=== PATIENT | female | born 1950 | race Two or more races ===

== ENCOUNTER 2023-06-19 18:57 | Inpatient (IN) | payer OTHER ==
[~2023-06-19] VITALS: Ht 165.1 cm; Wt 68.0 kg
[2023-06-19] MEDS ORDERED: JARDIANCE10 MG PO (20:08)
[2023-06-19] MEDS ORDERED: CALCIUM 600+D1 EAC1 PO (20:09)
[2023-06-19] MEDS ORDERED: EFFER-K 20 MEQ20 MEQ PO (20:09)
[2023-06-19] MEDS ORDERED: LEVO-T75 MCG (20:09)
[2023-06-19] MEDS ORDERED: SODIUM BICARBO650 MG PO (20:10)
[2023-06-19] MEDS ORDERED: 0.9 % SODIUM CHLORIDE 1,000 ML IV SCH (20:30)
[2023-06-19 21:06] LABS: HEMATOCRIT 35.1 % (36.0-45.00); HEMOGLOBIN 11.3 g/dL (12.0-15.00); MEAN CELL VOLUME 89.5 fL (80.00-100.00); MEAN CORPUSCULAR HEMOGLOBIN 28.8 pg (27.00-32.0); MEAN CORPUSCULAR HGB CONC 32.1 g/dl (32.0-36.0); PLATELET COUNT 202 K/uL (150-450); RED BLOOD COUNT 3.92 M/uL (4.00-6.00); RED CELL DISTRIBUTION WIDTH 15.7 % (11.5-14.5)
[2023-06-19 21:34] LABS: ALBUMIN 2.7 gm/dL (3.4-5.0); BILIRUBIN TOTAL 0.3 mg/dL (0.3-1.2); GFR 7.69; GLOBULINA 3.4 G/DL (2.4-3.5); POTASSIUM 5.87 mEq/L (3.5-5.1); TOTAL PROTEIN 6.1 gm/dL (6.4-8.2)
[2023-06-19 21:52] LABS: CREATININE SERUM 5.46 mg/dL (0.55-1.02)
[2023-06-19] MEDS ORDERED: SODIUM POLYSTYRENE SULFONATE 15 G/4 TSP TSP PO SCH (23:43)
[2023-06-19] MEDS ORDERED: CITRIC ACID/SODIUM CITRATE 30 ML BLIST.PACK PO SCH (23:44)
[2023-06-19] MEDS ORDERED: ACETAMINOPHEN 500 MG GEL..CAP PO PRN (23:45)
[2023-06-19] MEDS ORDERED: ONDANSETRON HCL 4 MG in 0.9 % SODIUM CHLORIDE 50 ML IV PRN (23:45)
[2023-06-19] MEDS ORDERED: DEXTROSE 50 % IN WATER 0.5 G/ML DISP.SYRIN IV PRN (23:45)
[2023-06-19] MEDS ORDERED: FUROsemide 40 MG/4 ML VIAL IV ONE (23:45)
[2023-06-19] MEDS ORDERED: SODIUM BICARBONATE 50 MEQ in SODIUM CHLORIDE 0.45 % 1,000 ML IV ONE (23:45)
[2023-06-19 23:46] LABS: ABG PH 7.345 (7.35-7.45); ABG PO2 169.6 mmHg (80-100); BASE EXCESS -11.6 mmol/l; BICARBONATE 11.8 mmol/l (23-25); SaO2 99.3 %
[2023-06-19 23:47] LABS: Tco2 12.4 mmol/l; allen test SATISFACTORY; o2 21 %; puncture site RADIAL RIGHT
[2023-06-20] MEDS ORDERED: IPRATROPIUM BROMIDE 0.5 MG/2.5 ML AMPUL.NEB IH SCH (01:00)
[2023-06-20 03:42] LABS: INR < 0.93; PARTIAL THROMBOPLASTIN TIME 25.6 SECONDS (22.0-34.0); PROTHROMBIN TIME 9.5 SECONDS (9.0-11.5)
[2023-06-20 03:56] LABS: PHOSPHOROUS 4.3 mg/dL (2.5-4.9)
[2023-06-20] MEDS ORDERED: FUROsemide 20 MG/2 ML VIAL IV SCH (09:00)
[2023-06-20] MEDS ORDERED: FAMOTIDINE/PF 20 MG in 0.9 % SODIUM CHLORIDE 8 ML IV PUSH SCH (09:00)
[2023-06-20] MEDS ORDERED: TAMSULOSIN HCL 0.4 MG CAP PO SCH (12:06)
[2023-06-20 18:00] LABS: ALBUMIN 2.2 gm/dL (3.4-5.0); BILIRUBIN TOTAL 0.28 mg/dL (0.3-1.2); CALCIUM 7.3 mg/dL (8.5-10.1); GFR 6.21; GLOBULINA 3.2 G/DL (2.4-3.5); POTASSIUM 4.84 mEq/L (3.5-5.1); TOTAL PROTEIN 5.4 gm/dL (6.4-8.2)
[2023-06-20 18:22] LABS: CREATININE SERUM 6.57 mg/dL (0.55-1.02)
[2023-06-21] MEDS ORDERED: LEVOTHYROXINE SODIUM 75 MCG TABLET PO SCH (06:00)
[2023-06-21 07:07] LABS: ALBUMIN 2.1 gm/dL (3.4-5.0); BILIRUBIN TOTAL 0.32 mg/dL (0.3-1.2); CALCIUM 7.2 mg/dL (8.5-10.1); GFR 5.32; GLOBULINA 2.7 G/DL (2.4-3.5); POTASSIUM 4.61 mEq/L (3.5-5.1); TOTAL PROTEIN 4.8 gm/dL (6.4-8.2)
[2023-06-21 08:07] LABS: CREATININE SERUM 7.51 mg/dL (0.55-1.02)
[2023-06-21] MEDS ORDERED: MIDAZOLAM HCL 2 MG/2 ML VIAL IV ONE (20:00)
[2023-06-21] MEDS ORDERED: LIDOCAINE HCL 100 MG/10ML VIAL ONE (20:24)
[2023-06-22] MEDS ORDERED: FAMOTIDINE/PF 20 MG/2 ML VIAL ONE (07:52)
[2023-06-22 10:58] LABS: ALBUMIN 2.2 gm/dL (3.4-5.0); BILIRUBIN TOTAL 0.41 mg/dL (0.3-1.2); CALCIUM 7.6 mg/dL (8.5-10.1); GFR 7.07; GLOBULINA 2.5 G/DL (2.4-3.5); POTASSIUM 3.9 mEq/L (3.5-5.1); TOTAL PROTEIN 4.7 gm/dL (6.4-8.2)
[2023-06-22 11:01] LABS: CREATININE SERUM 5.87 mg/dL (0.55-1.02)
[2023-06-22 12:30] LABS: INR < 0.93; PROTHROMBIN TIME 9.8 SECONDS (9.0-11.5)
[2023-06-22 12:53] LABS: CHOL HDL RATIO 2.6 (0-5.0)
[2023-06-22 22:12] LABS: URINE APPEARANCE Turbid; URINE BILIRRUBIN Negative (NEGATIVE); URINE BLOOD Large; URINE COLOR Orange; URINE GLUCOSE Negative (NEGATIVE); URINE LEUKOCYTE Large; URINE NITRATE Negative; URINE PROTEIN >=1000 (NEGATIVE); URINE UROBILINOGEN 0.2 E.U./dl
[2023-06-22 22:36] LABS: URINE RBC 19-25 /HPF
[2023-06-22 22:37] LABS: URINE WBC LOADED /hpf
[2023-06-22 22:39] LABS: URINE BACTERIA MANY; URINE CRYSTALS NEGATIVE /HPF; URINE EPITHELIAL CELLS NONE SEEN /HPF; URINE MUCUS HEAVY; URINE YEAST FEW /hpf
[2023-06-23 07:30] LABS: BILIRUBIN TOTAL 0.42 mg/dL (0.3-1.2); CALCIUM 7.8 mg/dL (8.5-10.1); GFR 5.37; GLOBULINA 2.5 G/DL (2.4-3.5); POTASSIUM 4.32 mEq/L (3.5-5.1); TOTAL PROTEIN 4.5 gm/dL (6.4-8.2)
[2023-06-23 08:14] LABS: CREATININE SERUM 7.45 mg/dL (0.55-1.02)
[2023-06-23] MEDS ORDERED: FAMOTIDINE/PF 20 MG/2 ML VIAL ONE (08:16)
[2023-06-23] MEDS ORDERED: CHLORHEXIDINE GLUCONATE 120 ML BOTTLE TOP ONE ×2 (09:45→10:45)
[2023-06-23] MEDS ORDERED: IOVERSOL 320 MG/ML - 50 ML VIAL IV ONE (09:45)
[2023-06-23 21:40] LABS: HEMATOCRIT 35.4 % (36.0-45.00); HEMOGLOBIN 11.9 g/dL (12.0-15.00); MEAN CORPUSCULAR HEMOGLOBIN 29.5 pg (27.00-32.0); MEAN CORPUSCULAR HGB CONC 33.6 g/dl (32.0-36.0); PLATELET COUNT 218 K/uL (150-450); RED BLOOD COUNT 4.02 M/uL (4.00-6.00); RED CELL DISTRIBUTION WIDTH 14.6 % (11.5-14.5)
[2023-06-24 07:10] LABS: ALBUMIN 2.1 gm/dL (3.4-5.0); BILIRUBIN TOTAL 0.39 mg/dL (0.3-1.2); CALCIUM 7.9 mg/dL (8.5-10.1); GFR 7.46; GLOBULINA 2.8 G/DL (2.4-3.5); POTASSIUM 4.45 mEq/L (3.5-5.1); TOTAL PROTEIN 4.9 gm/dL (6.4-8.2)
[2023-06-24 08:29] LABS: CREATININE SERUM 5.6 mg/dL (0.55-1.02)
[2023-06-24] MEDS ORDERED: 0.9 % SODIUM CHLORIDE 1,000 ML IV SCH (12:45)
[2023-06-25] MEDS ORDERED: SODIUM CHLORIDE 0.45 % 1,000 ML IV SCH (06:15)
[2023-06-25 08:23] LABS: ALBUMIN 2.2 gm/dL (3.4-5.0); BILIRUBIN TOTAL 0.46 mg/dL (0.3-1.2); CALCIUM 7.6 mg/dL (8.5-10.1); CREATININE SERUM 3.73 mg/dL (0.55-1.02); GFR 11.93; GLOBULINA 2.8 G/DL (2.4-3.5); POTASSIUM 3.64 mEq/L (3.5-5.1)
[2023-06-26 08:28] LABS: HEMATOCRIT 33.3 % (36.0-45.00); HEMOGLOBIN 11.1 g/dL (12.0-15.00); MEAN CELL VOLUME 87.1 fL (80.00-100.00); MEAN CORPUSCULAR HGB CONC 33.4 g/dl (32.0-36.0); PLATELET COUNT 190 K/uL (150-450); RED BLOOD COUNT 3.83 M/uL (4.00-6.00); RED CELL DISTRIBUTION WIDTH 14.8 % (11.5-14.5)
[2023-06-26 08:46] LABS: ALBUMIN 2.2 gm/dL (3.4-5.0); CALCIUM 7.7 mg/dL (8.5-10.1); CREATININE SERUM 2.47 mg/dL (0.55-1.02); GFR 19.2; MAGNESIUM 1.5 mg/dL (1.8-2.4); POTASSIUM 3.55 mEq/L (3.5-5.1)
[2023-06-26 11:37] LABS: ALBUMIN 2.2 gm/dL (3.4-5.0); BILIRUBIN TOTAL 0.58 mg/dL (0.3-1.2); CALCIUM 7.1 mg/dL (8.5-10.1); CREATININE SERUM 2.29 mg/dL (0.55-1.02); GFR 20.95; GLOBULINA 2.8 G/DL (2.4-3.5); POTASSIUM 3.34 mEq/L (3.5-5.1)
[2023-06-26] MEDS ORDERED: POTASSIUM BICARBONATE/CIT AC 25 MEQ TABLET.EFF PO SCH (13:00)
[2023-06-26] MEDS ORDERED: MAGNESIUM SULFATE IN WATER 2 GM/50 ML PIGGYBAG IV ONE (13:00)
[2023-06-27 08:30] LABS: ALBUMIN 2.1 gm/dL (3.4-5.0); CALCIUM 7.8 mg/dL (8.5-10.1); CREATININE SERUM 1.9 mg/dL (0.55-1.02); GFR 25.98; MAGNESIUM 2.5 mg/dL (1.8-2.4); PHOSPHOROUS 2.5 mg/dL (2.5-4.9); POTASSIUM 3.97 mEq/L (3.5-5.1)
[2023-06-27] MEDS ORDERED: ALPRAzolam 0.5 MG TABLET PO ONE (13:15)
[2023-06-28 07:37] LABS: ALBUMIN 2.1 gm/dL (3.4-5.0); BILIRUBIN TOTAL 0.36 mg/dL (0.3-1.2); CALCIUM 7.5 mg/dL (8.5-10.1); CREATININE SERUM 1.68 mg/dL (0.55-1.02); GFR 29.95; GLOBULINA 2.4 G/DL (2.4-3.5); POTASSIUM 3.92 mEq/L (3.5-5.1); TOTAL PROTEIN 4.5 gm/dL (6.4-8.2)
[2023-06-29 07:01] LABS: CALCIUM 7.9 mg/dL (8.5-10.1); CREATININE SERUM 1.72 mg/dL (0.55-1.02); GFR 29.15; POTASSIUM 3.88 mEq/L (3.5-5.1)
== END 2023-06-29 18:38 | disposition home or self-care (01) | DRG 659 ==
LOC: ER 18:57 → SURH 23:56 → SEC-K 23:56 → SURH 06-20 19:56
PROVIDERS: Emergency Medicine; General Practice; Internal Medicine; Internal Medicine Nephrology; Urology; ADMIT Internal Medicine; ATTEND Internal Medicine
PROC: BW21ZZZ Computerized Tomography (CT Scan) of Abdomen and Pelvis (ICD-10-PCS; 2023-06-19)
PROC: BT43ZZZ Ultrasonography of Bilateral Kidneys (ICD-10-PCS; 2023-06-19)
PROC: 3E0F7GC Introduction of Other Therapeutic Substance into Respiratory Tract, Via Natural or Artificial Opening (ICD-10-PCS; 2023-06-20)
PROC: 06HY33Z Insertion of Infusion Device into Lower Vein, Percutaneous Approach (ICD-10-PCS; 2023-06-21)
PROC: 5A1D70Z Performance of Urinary Filtration, Intermittent, Less than 6 Hours Per Day (ICD-10-PCS; 2023-06-21)
PROC: 4A12X4Z Monitoring of Cardiac Electrical Activity, External Approach (ICD-10-PCS; 2023-06-21)
PROC: 0T788DZ Dilation of Bilateral Ureters with Intraluminal Device, Via Natural or Artificial Opening Endoscopic (ICD-10-PCS; principal; 2023-06-23 09:00)
DX: I12.0 Hypertensive chronic kidney disease with stage 5 chronic kidney disease or end stage renal disease (principal); N18.6 End stage renal disease; N17.9 Acute kidney failure, unspecified; N13.2 Hydronephrosis with renal and ureteral calculous obstruction; E83.59 Other disorders of calcium metabolism; N29 Other disorders of kidney and ureter in diseases classified elsewhere; R34 Anuria and oliguria; R09.02 Hypoxemia; E87.6 Hypokalemia; E83.42 Hypomagnesemia; E11.22 Type 2 diabetes mellitus with diabetic chronic kidney disease; E03.9 Hypothyroidism, unspecified; Z99.2 Dependence on renal dialysis

== ENCOUNTER 2023-07-01 15:53 | Emergency (ER) | payer OTHER ==
[~2023-07-01] VITALS: Ht 165.1 cm; Wt 47.6 kg
[~2023-07-01 15:53] MED LIST: CALCIUM 600+D1 EAC1 PO; EFFER-K 20 MEQ20 MEQ PO; JARDIANCE10 MG PO; LEVO-T75 MCG; SODIUM BICARBO650 MG PO
[2023-07-01] MEDS ORDERED: TAMS0.4C PO (16:03)
[2023-07-01 16:52] LABS: URINE APPEARANCE Cloudy; URINE BILIRRUBIN Negative (NEGATIVE); URINE BLOOD Large; URINE COLOR Yellow; URINE GLUCOSE Negative (NEGATIVE); URINE LEUKOCYTE Large; URINE NITRATE Negative; URINE UROBILINOGEN 0.2 E.U./dl
[2023-07-01 16:55] LABS: URINE BACTERIA 569.5 uL (0.0-1933); URINE RBC 97.2 uL (0.0-20.8); URINE WBC 3621.5 uL (0.0-23.2)
[2023-07-01 16:57] LABS: HEMATOCRIT 30.7 % (36.0-45.00); HEMOGLOBIN 10.3 g/dL (12.0-15.00); MEAN CELL VOLUME 87.9 fL (80.00-100.00); MEAN CORPUSCULAR HEMOGLOBIN 29.3 pg (27.00-32.0); MEAN CORPUSCULAR HGB CONC 33.4 g/dl (32.0-36.0); PLATELET COUNT 225 K/uL (150-450); RED CELL DISTRIBUTION WIDTH 14.5 % (11.5-14.5)
[2023-07-01 16:59] LABS: URINE PROTEIN 100 (NEGATIVE)
[2023-07-01 17:13] LABS: CALCIUM 8.6 mg/dL (8.5-10.1); CREATININE SERUM 2.47 mg/dL (0.55-1.02); GFR 19.2; POTASSIUM 4.19 mEq/L (3.5-5.1)
[2023-07-01] MEDS ORDERED: PIPERACILLIN/TAZOBACTAM SODIUM 2.25 GM VIAL IV ONE (17:30)
[2023-07-01] MEDS ORDERED: 0.9 % SODIUM CHLORIDE 500 ML IV SCH (17:30)
== END 2023-07-01 19:00 | disposition home or self-care (01) ==
LOC: ER 15:53
PROVIDERS: General Practice
DX: N39.0 Urinary tract infection, site not specified (principal); R31.9 Hematuria, unspecified; Z88.6 Allergy status to analgesic agent; N18.9 Chronic kidney disease, unspecified; Z85.89 Personal history of malignant neoplasm of other organs and systems; Z87.442 Personal history of urinary calculi; N20.0 Calculus of kidney
CPT/HCPCS: 99366; 36415; 74240; 96365; 99283; J2543; J7042